=== PATIENT | female | born 1995 | race Caucasian/White ===

== ENCOUNTER 2017-01-10 02:42 | Emergency (ER) | payer MEDICAID, OTHER ==
[2017-01-10 02:42] VITALS: BMI 45.4
[2017-01-10 02:51] VITALS: BP 147/79; PULSE 114; RESP 20; TEMP 98.6; O2SAT 100
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
== END 2017-01-10 06:37 | disposition home or self-care (01) ==
LOC: ED 02:42
DX: S16.1XXA Strain of muscle, fascia and tendon at neck level, initial encounter (principal); S02.2XXA Fracture of nasal bones, initial encounter for closed fracture; S86.911A Strain of unspecified muscle(s) and tendon(s) at lower leg level, right leg, initial encounter; V49.9XXA Car occupant (driver) (passenger) injured in unspecified traffic accident, initial encounter; F17.210 Nicotine dependence, cigarettes, uncomplicated